=== PATIENT | female | born 1935 | race Caucasian/White ===

== ENCOUNTER 2018-03-23 22:18 | Inpatient (IN) | payer MEDICARE, MEDICAID ==
[~2018-03-23] VITALS: Ht 172.7 cm; Wt 88.9 kg
--- NOTE | 2018-03-23 22:35 | NUR ---
TO BED [address] YOUNGER S/P CT SHOWING RIGHT SIDED PULMONARY EMBOLIS. PT AAOX4 NO ACUTE DISTRESS NOTED, RESP EVEN AND UNLABORED. PLACE PT ON CARDIAC MONITORING, CONTINUOUS POX. PENDING ER MD ENGLISH.
[2018-03-23 23:27] LABS: BASOPHILS # (AUTO) 0.1 /CMM (0.0-0.2); EOSINOPHILS % (AUTO) 1.7 % (0.0-6.0); HEMATOCRIT 38 % (33-45); HEMOGLOBIN 12.6 g/dL (11.5-14.8); LYMPHOCYTES # (AUTO) 1.9 /CMM (0.8-4.8); LYMPHOCYTES % (AUTO) 23.2 % (20.0-44.0); MEAN CORPUSCULAR HGB CONC 34 g/dl (31.0-36.0); MEAN CORPUSCULAR VOLUME 88 fL (82-100); MONOCYTES # (AUTO) 0.5 /CMM (0.1-1.30); MONOCYTES % (AUTO) 6.4 % (2.0-12.0); NEUTROPHILS # (AUTO) 5.5 /CMM (1.8-8.9); NEUTROPHILS % (AUTO) 67.7 % (43.0-81.0); PLATELET COUNT (AUTO) 293 /CMM (150-450); RED BLOOD CELL COUNT(AUTO) 4.28 MIL/uL (4.0-5.2); WHITE BLOOD COUNT (AUTO) 8.1 K/uL (4.3-11.0)
--- NOTE | 2018-03-23 23:28 | NUR ---
CALLED DR DUMONT RADIOLOGIST ([phone]) PER DR ONEILL REGARDING REPORT FROM PREVIOUS CT.
--- NOTE | 2018-03-23 23:36 | NUR ---
CALLED HOUSE SUP FOR TELE BED
[2018-03-23 23:37] LABS: CARBON DIOXIDE 30 mmol/L (21-32); CHLORIDE 101 mmol/L (98-107); CREATININE 0.9 mg/dL (0.6-1.3); GLUCOSE 121 mg/dL (74-106); POTASSIUM 4.1 mmol/L (3.5-5.1); SODIUM SERUM 138 mmol/L (136-145); UREA NITROGEN, BLOOD 8 mg/dL (7-18)
[2018-03-23] MEDS ORDERED: ENOXAPARIN SODIUM 80 MG/0.8 ML DISP.SYRIN SQ STA (23:55)
[2018-03-24] VITALS (8 sets, daily range): BP systolic 104–135; BP diastolic 57–81
[2018-03-24] MEDS ORDERED: MAGNESIUM HYDROXIDE 30 ML UDC PO PRN (00:30)
[2018-03-24] MEDS ORDERED: Z GUARD REMEDY 2 OZ OINT TP PRN (00:30)
[2018-03-24] MEDS ORDERED: ZOLPIDEM TARTRATE 5 MG TABLET PO PRN (00:30)
[2018-03-24] MEDS ORDERED: ALBUTEROL FS 2.5 MG/3 ML VIAL.NEB NEB PRN (00:30)
[2018-03-24] MEDS ORDERED: MAG HYDROX/AL HYDROX/SIMETH 30 ML UDC PO PRN (00:30)
[2018-03-24] MEDS ORDERED: ACETAMINOPHEN 325 MG TABLET PO PRN (00:30)
[2018-03-24] MEDS ORDERED: ONDANSETRON HCL/PF 4 MG/2 ML VIAL IVP PRN (00:30)
--- NOTE | 2018-03-24 00:35 | NUR ---
ER MD AT BEDSIDE TALKING TO PT AND PT FAMILY MEMBER REGARDING LAB RESULTS AND HOSPITAL ADMISSION.
[2018-03-24] MEDS ORDERED: ENOXAPARIN SODIUM 80 MG/0.8 ML DISP.SYRIN SQ ONE (01:01)
--- NOTE | 2018-03-24 01:04 | NUR ---
REPORT CALLED TO ROUGHER MACHINE OPERATORWALI JAMISON. WILL TRANSPORT PT VIA ACLS PROTOCOL.
--- NOTE | 2018-03-24 01:20 | NUR ---
RN ADMITTING NOTES RECEIVED REPORT FROM ER NURSE ED. Pt ARRIVED ON THE FLOOR VIA GURNEY. Pt WAS ABLE TO AMBULATE FROM ER GURNEY TO ROOM BED IN 325-2, WITH STEADY GAIT. SKIN INTACT. Pt IS A/OX4, VERBAL, ABLE TO MAKE NEEDS KNOWN, UNDERSTANDS SOME BULGARIAN, ESTONIAN SPEAKING. Pt's DAUGHTER IS AT BEDSIDE. IV ACCESS ON RAC #18G, SL. NO S/S OF ACUTE DISTRESS OR SOB NOTED. ON TELE MONITOR. SAFETY MEASURES IN PLACE. BED LOW, LOCKED, HOB ELEVATED, SIDE RAILS UP, AND CALL LIGHT WITHIN REACH. WILL CONTINUE TO MONITOR Pt's CONDITION AND SAFETY THROUGHOUT THE NIGHT.
[2018-03-24] MEDS ORDERED: ENOXAPARIN SODIUM 100 MG/ML DISP.SYRIN SQ ONE (01:30)
[2018-03-24] MEDS ORDERED: ASPI81TA44 PO (01:54)
[2018-03-24] MEDS ORDERED: ESOM40CA PO (01:54)
[2018-03-24] MEDS ORDERED: SITA100T PO (01:54)
[2018-03-24] MEDS ORDERED: LEVO75TA7 PO (01:54)
[2018-03-24] MEDS ORDERED: METF-441 PO (01:54)
[2018-03-24] MEDS ORDERED: GLIM2TAB2 PO (01:54)
--- NOTE | 2018-03-24 04:41 | NUR ---
DR. DILLARD (PATIENT's PCP): [phone] DR. DUMONT (RADIOLOGIST WHO READ Pt's CT SCAN): [phone]
--- NOTE | 2018-03-24 06:45 | NUR ---
RN CLOSING NOTES NO SIGNIFICANT CHANGES IN Pt's CONDITION. Pt REMAINS STABLE PER BASELINE. NO S/S OF ACUTE DISTRESS OR SOB NOTED DURING THE NIGHT. Pt IS AWAKE IN BED. RESPIRATIONS EVEN AND UNLABORED. ALL NEEDS MET AND ATTENDED TO. SAFETY MEASURES IN PLACE. WILL ENDORSE TO DAYSHIFT RN FOR Pt's PASCUAL. Addendum: 03/24/18 at 0753 by ELIAS HOLDEN RN TELE READING SR [id number]
--- NOTE | 2018-03-24 07:41 | NUR ---
TELE/RN OPENING NOTE PATIENT IN BED IN STABLE CONDITION. A/O X 4. NO SIGNS OF ACUTE DISTRESS. NO COMPLAIN OF PAIN OR DISCOMFORT. ON TELE MONITOR NOTED WITH SINUS RHYTHM 68. ALL NEEDS ATTENDED TO. CALL LIGHT WITHIN REACH. WILL CONTINUE TO MONITOR TO ENSURE SAFETY.
[2018-03-24] MEDS: ENOXAPARIN SODIUM 100 MG/ML DISP.SYRIN SQ SCH ×2 (08:45→21:29)
[2018-03-24] MEDS ORDERED: TRAM50TA2 PO (08:56)
[2018-03-24] MEDS ORDERED: GABA-534 PO (08:56)
[2018-03-24] MEDS ORDERED: OLME1TAB50 PO (08:56)
[2018-03-24] MEDS ORDERED: FERR325T23 PO (08:56)
[2018-03-24] MEDS ORDERED: CHOL100044 PO (08:56)
[2018-03-24] MEDS ORDERED: FLUT1DIS3 IH (08:56)
[2018-03-24] MEDS ORDERED: PRAV20TA4 PO (08:56)
[2018-03-24] MEDS ORDERED: DONE5TAB34 PO (08:56)
[2018-03-24] MEDS ORDERED: OMEG-167 PO (08:58)
[2018-03-24] MEDS ORDERED: ENOXAPARIN SODIUM 80 MG/0.8 ML DISP.SYRIN SQ SCH (09:00)
[2018-03-24] MEDS: HYDROCODONE/APAP 5/325MG 1 EACH TABLET PO PRN (10:34)
--- NOTE | 2018-03-24 10:40 | NUR ---
TELE/RN SPOKE WITH CHRISTINE DUMONT , WHERE PATIENT GOT HER CT ANGIO DONE, IF THEY CAN FAX CT ANGIO RESULTS. PER CHRISTINE DUMONT, "HE WILL ASK HIS OFFICE TO FAX THE REPORT." FAX NUMBER PROVIDED.
[2018-03-24] MEDS ORDERED: DEXTROSE 50%-WATER 50 ML DISP.SYRIN IV PRN (11:00)
--- NOTE | 2018-03-24 11:00 | NUR ---
TELE/RN SPOKE WITH ROSENDA CALI AND MADE AWARE PER PATIENT'S RADIOLOGIST HE WILL FAX CT ANGIO RESULTS AND ALSO KARELY MADE AWARE PATIENT'S MED RECON NEEDS TO BE DONE. PER KARELY, HE WILL DO IT.
--- NOTE | 2018-03-24 12:00 | NUR ---
TELE/RN SPOKE WITH ROSENDA CALI AND RELAYED PATIENT'S CT ANGIO RESULTS FAXED FROM HER PRIMARY PHYSICIAN OFFICE. PER ROSENDA CALI PLEASE CONTINUE LOVENOX ORDERED. PATIENT AND FAMILY AWARE.
[2018-03-24] MEDS: INSULIN REGULAR, HUMAN 100 UNIT/ML 3 ML VIAL SQ PRN ×2 (12:03→17:23)
[2018-03-24] MEDS: BLOOD SUGAR DIAGNOSTIC 1 EACH STRIP IN SCH ×3 (12:03→21:28)
[2018-03-24] MEDS: TRAMADOL HCL 50 MG TABLET PO PRN (13:20)
--- NOTE | 2018-03-24 13:27 | NUR ---
INITIAL RESULTS OF DUPLEX VENOUS LOWER EXT BI COM TEST SHOWED POSITIVE FOR DVT AT LT SFV PROX, LT SFV MID, LT POP, AND RT CFV LEVELS. PRE FINDINGS ADVISED TO ATTENDING RN AND CHARGE NURSE (EHRNESTO) AND SPOKE TO KRUNAL DOWELL (STEPHEN).
--- NOTE | 2018-03-24 13:57 | NUR ---
TELE/RN PAGED CLERK TELEGRAPH SERVICE KARELY TO RELAY PATIENT BILATERAL LOWER EXTREMITY VENOUS DOPPLER STUDY RESULTS. AWAITING FOR CALL BACK.
--- NOTE | 2018-03-24 15:00 | NUR ---
TELE/RN RECEIVED CALL BACK FROM ROSENDA CALI AND RELAYED PATIENT'S BILATERAL LOWER EXTREMITY VENOUS DOPPLER STUDY. PER KARELY CONTINUE LOVENOX ORDERED. PATIENT AWARE.
[2018-03-24] MEDS ORDERED: ACETYLCYSTEINE 10% 3,000 MG/30 ML VIAL PO ONE (16:30)
[2018-03-24] MEDS ORDERED: BARIUM SULFATE SUSP 450 ML BOTTLE PO ONE (17:36)
[2018-03-24] MEDS ORDERED: CT SWABBABLE VALVE TRANS SET 1 EA INFUS.SET MC ONE (18:56)
[2018-03-24] MEDS ORDERED: IV NS 0.9% 250 ML IV ONE (18:56)
[2018-03-24] MEDS ORDERED: IOHEXOL-300 100 ML VIAL IV ONE ×2 (18:56→19:24)
--- NOTE | 2018-03-24 19:25 | NUR ---
MS RN OPENING NOTE PATIENT WAS SENT TO RADIOLOGY BY AM RN FOR CT ABDOMEN/PELVIS WITH CONTRAST. CAME BACK FROM RADIOLOGY. PT IS A/O X 4. NO COMPLAIN OF PAIN OR DISCOMFORT VERBALIZED AT THIS TIME. NO ACUTE DISTRESS NOTED. ABLE TO MAKE NEEDS KNOWN. IV ACCESS TO LAC, SL, INTACT PATENT. INSTRUCTED TO PATIENT TO REST IN BED MUCH POSSIBLE, VERBALIZED UNDERSTANDING. ALL NEEDS ATTENDED TO. BED IN LOW LOCKED POSITION. CALL LIGHT WITHIN REACH. CONTINUE TO MONITOR TO ENSURE SAFETY.
--- NOTE | 2018-03-24 19:30 | NUR ---
MS/RN CLOSING NOTE PATIENT IN BED IN STABLE CONDITION. A/OX 4. ENGLISH SPEAKING. NO SIGNS OF ACUTE DISTRESS. NO COMPLAIN OF PAIN OR DISCOMFORT. PATIENT WENT FOR CT ABD/PELVIS AT THIS TIME. WILL ENDORSE TO NEXT SHIFT FOR PASCUAL.
[2018-03-24] MEDS ORDERED: ENOXAPARIN SODIUM 100 MG/ML DISP.SYRIN SQ SCH (21:00)
[2018-03-24 21:14] LABS: ALANINE AMINOTRANSFERASE 20 U/L (12-78); ALBUMIN 3.2 g/dL (3.4-5.0); ALKALINE PHOSPHATASE 54 U/L (46-116); ASPARTATE AMINOTRANSFERASE 13 U/L (15-37); BILIRUBIN,TOTAL 0.2 mg/dL (0.2-1.0); CALCIUM, SERUM 9.1 mg/dL (8.5-10.1); CARBON DIOXIDE 30 mmol/L (21-32); CHLORIDE 100 mmol/L (98-107); CREATININE 0.7 mg/dL (0.6-1.3); GLUCOSE 152 mg/dL (74-106); IRON, SERUM 46 ug/dl (50-175); MAGNESIUM 1.4 mg/dL (1.8-2.4); PHOSPHORUS 3.7 mg/dL (2.5-4.9); POTASSIUM 3.8 mmol/L (3.5-5.1); SODIUM SERUM 136 mmol/L (136-145); TOTAL IRON BINDING CAPACITY 250 ug/dl (250-450); TOTAL PROTEIN, SERUM 6.6 g/dL (6.4-8.2); UREA NITROGEN, BLOOD 11 mg/dL (7-18)
[2018-03-24 21:18] LABS: CHOLESTEROL 197 mg/dL (<200); FERRITIN 35 ng/mL (8-388); HDL CHOLESTEROL 84 mg/dL (40-60); LDL 97 mg/dL (0-99); THYROID STIMULATING HORMONE 4.021 uIU/mL (0.358-3.74); TRIGLYCERIDES 129 mg/dL (30-150)
[2018-03-24] MEDS: GABAPENTIN 300 MG CAPSULE PO SCH (21:28)
[2018-03-25 06:16] LABS: BASOPHILS # (AUTO) 0.1 /CMM (0.0-0.2); BASOPHILS % (AUTO) 1.1 % (0.0-2.0); EOSINOPHILS % (AUTO) 2.3 % (0.0-6.0); HEMATOCRIT 37 % (33-45); LYMPHOCYTES # (AUTO) 1.7 /CMM (0.8-4.8); LYMPHOCYTES % (AUTO) 33.8 % (20.0-44.0); MEAN CORPUSCULAR HGB CONC 33 g/dl (31.0-36.0); MEAN CORPUSCULAR VOLUME 89 fL (82-100); MONOCYTES # (AUTO) 0.3 /CMM (0.1-1.30); MONOCYTES % (AUTO) 6.9 % (2.0-12.0); NEUTROPHILS # (AUTO) 2.8 /CMM (1.8-8.9); NEUTROPHILS % (AUTO) 55.9 % (43.0-81.0); PLATELET COUNT (AUTO) 268 /CMM (150-450); RED BLOOD CELL COUNT(AUTO) 4.14 MIL/uL (4.0-5.2)
[2018-03-25 06:26] LABS: CARBON DIOXIDE 29 mmol/L (21-32); CHLORIDE 103 mmol/L (98-107); CREATININE 0.7 mg/dL (0.6-1.3); GLUCOSE 143 mg/dL (74-106); MAGNESIUM 1.3 mg/dL (1.8-2.4); PHOSPHORUS 4.5 mg/dL (2.5-4.9); SODIUM SERUM 142 mmol/L (136-145); UREA NITROGEN, BLOOD 9 mg/dL (7-18)
[2018-03-25] MEDS: BLOOD SUGAR DIAGNOSTIC 1 EACH STRIP IN SCH ×4 (06:40→21:01)
--- NOTE | 2018-03-25 06:41 | NUR ---
REFUSES INSULIN PATIENT'S BS LEVEL NOTED TO BE 143MG/DL. 2 UNITS OF INSULIN NEEDS TO BE GIVEN BUT PATIENT REFUSED TO GET INSULIN PER PROTOCOL DESPITE OF RISKS & BENEFIT EXPLANATIONS. WILL ENDORSE TO AM RN.
[2018-03-25 06:49] LABS: CHOLESTEROL 195 mg/dL (<200); HDL CHOLESTEROL 77 mg/dL (40-60); LDL 96 mg/dL (0-99); TRIGLYCERIDES 161 mg/dL (30-150)
--- NOTE | 2018-03-25 06:56 | NUR ---
MS RN CLOSING NOTE PATIENT SLEPT WELL AT NIGHT. PT IS A/O X 4. NO COMPLAIN OF PAIN OR DISCOMFORT VERBALIZED AT THIS TIME. NO ACUTE DISTRESS, NO SOB, NO CHEST PAIN VERBALIZED. ABLE TO MAKE NEEDS KNOWN. IV ACCESS TO LAC, SL, INTACT PATENT. INSTRUCTED TO PATIENT TO REST IN BED MUCH POSSIBLE, VERBALIZED UNDERSTANDING. INSISTS TO USE BSC FOR ELIMINATION. ALL NEEDS ATTENDED TO. BED IN LOW LOCKED POSITION. CALL LIGHT WITHIN REACH. WILL ENDORSE TO AM RN FOR CONTINUITY OF CARE.
--- NOTE | 2018-03-25 07:20 | NUR ---
MS RN OPENING NOTE RECEIVED PATIENT IN BED. ALERT, ORIENTED X4. ON ROOM AIR TOLERATING WELL. IN NO APPARENT DISTRESS OR DISCOMFORT AT THIS TIME. RESPIRATIONS EVEN AND UNLABORED, DENIES SOB. PATIENT IS ABLE TO COMMUNICATE NEEDS IN VIETNAMESE. LEFT AC 18G IVC SL, PATENT AND INTACT. PATIENT KEPT CLEAN AND COMFORTABLE. ALL NEEDS ATTENDED, SAFETY MEASURES IN PLACE, BED IN LOW LOCKED POSITION, SIDE RAILS UP X2, CALL LIGHT WITHIN EASY REACH. WILL CONTINUE TO MONITOR.
[2018-03-25 08:00] VITALS: BP 127/80
[2018-03-25] MEDS: HYDROCODONE/APAP 5/325MG 1 EACH TABLET PO PRN (08:28)
[2018-03-25] MEDS: CHOLECALCIFEROL 1,000 UNIT TABLET (VIT D3) PO SCH (08:28)
[2018-03-25] MEDS: ASPIRIN EC 81 MG TABLET.DR PO SCH (08:28)
[2018-03-25] MEDS: LEVOTHYROXINE SODIUM 75 MCG TABLET PO SCH (08:28)
[2018-03-25] MEDS: DONEPEZIL 5 MG TABLET PO SCH (08:28)
[2018-03-25] MEDS: ENOXAPARIN SODIUM 100 MG/ML DISP.SYRIN SQ SCH ×2 (08:29→20:55)
[2018-03-25] MEDS: ATORVASTATIN 10 MG TABLET PO SCH (08:29)
[2018-03-25] MEDS: LOSARTAN/HCTZ 50-12.5MG/ 1 EA TABLET PO SCH ×2 (08:37→08:50)
[2018-03-25] MEDS ORDERED: FERROUS SULFATE (325 MG) 325 MG/TAB TABLET PO SCH (09:00)
[2018-03-25] MEDS: Magnesium 1GM/D5W 100ML PREMIX 100 ML IV SCH ×2 (09:33→10:54)
[2018-03-25 09:57] VITALS: BP 127/80
--- NOTE | 2018-03-25 12:00 | NUR ---
PATIENT BG 166. REFUSES INSULIN. HOSPITALIST KARELY MADE AWARE. WILL CONTINUE TO MONITOR.
[2018-03-25] MEDS: INSULIN REGULAR, HUMAN 100 UNIT/ML 3 ML VIAL SQ PRN (12:05)
[2018-03-25] MEDS: TRAMADOL HCL 50 MG TABLET PO PRN (13:19)
--- NOTE | 2018-03-25 18:19 | NUR ---
MS RN CLOSING NOTE PATIENT IN BED. ALERT, ORIENTED X4. ON ROOM AIR TOLERATING WELL. IN NO APPARENT DISTRESS OR DISCOMFORT AT THIS TIME. RESPIRATIONS EVEN AND UNLABORED, DENIES PAIN AND SOB. PATIENT IS ABLE TO COMMUNICATE NEEDS IN TURKISH. LEFT AC 18G IVC SL, PATENT AND INTACT. PATIENT IS ON BEDREST. USES BSC FOR ELIMINATION. KEPT CLEAN AND COMFORTABLE. ALL NEEDS ATTENDED, ORDERS RENDERED. SAFETY MEASURES IN PLACE, BED IN LOW LOCKED POSITION, SIDE RAILS UP X2, CALL LIGHT WITHIN EASY REACH. WILL ENDORSE TO PM NURSE FOR PASCUAL.
--- NOTE | 2018-03-25 19:32 | NUR ---
RN MS OPENING NOTES RECEIVED PATIENT IN BED AWAKE, ALERT AND ORIENTED X4, VERBALLY RESPONSIVE, ABLE TO MAKE NEEDS KNOWN. UKRAINIAN SPEAKING. BREATHING EVEN AND UNLABORED. NO SOB NOTED. TOLERATING ROOM AIR. NO COMPLAINTS OF PAIN OR DISCOMFORT. IV ON LEFT AC #18 INTACT AND PATENT. SKIN DRY AND WARM TO TOUCH. AFEBRILE. ALL OTHER NEEDS ATTENDED TO. SAFETY MEASURES IN PLACE. CALL LIGHT WITHIN REACH. WILL CONTINUE TO MONITOR.
[2018-03-25 20:00] VITALS: BP 128/62
[2018-03-25] MEDS: GABAPENTIN 300 MG CAPSULE PO SCH (21:01)
--- NOTE | 2018-03-25 21:33 | NUR ---
RN MS NOTES PATIENT'S BS 171. REFUSED INSULIN. PER PATIENT, SHE HASN'T HAD HER METFORMIN, WHICH IS WHY HER BS IS HIGHER THAN USUAL. OFFERED INSULIN AGAIN AND EXPLAINED RISKS AND BENEFITS, STILL REFUSED. WILL CONTINUE TO MONITOR.
[2018-03-26] MEDS: BLOOD SUGAR DIAGNOSTIC 1 EACH STRIP IN SCH ×2 (06:31→12:05)
--- NOTE | 2018-03-26 06:32 | NUR ---
RN MS NOTES PATIENT'S BS 145. REFUSES INSULIN DESPITE EXPLANATION OF RISKS AND BENEFITS. WILL CONTINUE TO MONITOR.
--- NOTE | 2018-03-26 06:44 | NUR ---
RN MS CLOSING NOTES PATIENT IN BED AWAKE. NO ACUTE CHANGES THROUGHOUT SHIFT. BREATHING EVEN AND UNLABORED. NO SOB NOTED. TOLERATING ROOM AIR. NO COMPLAINTS OF PAIN OR DISCOMFORT. IV ON LEFT AC #18 INTACT AND PATENT. SKIN DRY AND WARM TO TOUCH. AFEBRILE. KEPT CLEAN AND COMFORTABLE. ALL OTHER NEEDS ATTENDED TO. SAFETY MEASURES IN PLACE. CALL LIGHT WITHIN REACH. WILL ENDORSE TO ONCOMING NURSE FOR CONTINUITY OF CARE.
--- NOTE | 2018-03-26 07:36 | NUR ---
MS RN OPENING NOTE RECEIVED PT IN BED, SLEEPING AND EASILY AROUSABLE. PT IS PRIMARILY CENTRAL AFRICAN SPEAKING, ABLE TO MAKE BASIC NEEDS KNOWN, NO ACUTE DISTRESS NOTED AT THIS TIME. BREATHING IS EVEN AND UNLABORED ON ROOM AIR. L AC #18G IV IS SALINE LOCKED WITHOUT REDNESS OR SWELLING. ALL NEEDS ATTENDED TO, BED IS LOCKED AND IN LOWEST POSITION, SIDE RAILS UP X2,BED ALARM ON, CALL LIGHT WITHIN REACH.
[2018-03-26 08:00] VITALS: BP 115/68
[2018-03-26 08:04] LABS: CALCIUM, SERUM 7.7 mg/dL (8.5-10.1); CARBON DIOXIDE 33 mmol/L (21-32); CHLORIDE 103 mmol/L (98-107); CREATININE 0.8 mg/dL (0.6-1.3); GLUCOSE 149 mg/dL (74-106); POTASSIUM 4.6 mmol/L (3.5-5.1); SODIUM SERUM 142 mmol/L (136-145); UREA NITROGEN, BLOOD 11 mg/dL (7-18)
[2018-03-26] MEDS: ATORVASTATIN 10 MG TABLET PO SCH (08:21)
[2018-03-26] MEDS: LEVOTHYROXINE SODIUM 75 MCG TABLET PO SCH (08:21)
[2018-03-26] MEDS: ASPIRIN EC 81 MG TABLET.DR PO SCH (08:21)
--- NOTE | 2018-03-26 08:21 | NUR ---
MS RN NON ADMINISTRATION NOTE PT REFUSED AM ARICEPT AND HYZAAR ORDERED. RISKS AND BENEFITS EXPLAINED, PT STILL REFUSED.
[2018-03-26] MEDS: CHOLECALCIFEROL 1,000 UNIT TABLET (VIT D3) PO SCH (08:22)
[2018-03-26 08:23] VITALS: BP 115/68
[2018-03-26] MEDS: DONEPEZIL 5 MG TABLET PO SCH (08:23)
[2018-03-26] MEDS: LOSARTAN/HCTZ 50-12.5MG/ 1 EA TABLET PO SCH (08:23)
[2018-03-26] MEDS: ENOXAPARIN SODIUM 100 MG/ML DISP.SYRIN SQ SCH (08:27)
[2018-03-26] MEDS: HYDROCODONE/APAP 5/325MG 1 EACH TABLET PO PRN (12:03)
[2018-03-26] MEDS: INSULIN REGULAR, HUMAN 100 UNIT/ML 3 ML VIAL SQ PRN (12:06)
--- NOTE | 2018-03-26 12:10 | NUR ---
MS RN NON ADMINISTRATION NOTE B. PT REFUSED SLIDING SCALE INSULIN ORDERED, RISK AND BENEFITS EXPLAINED. PT STILL REFUSED.
--- NOTE | 2018-03-26 16:25 | NUR ---
MS RN PT DISCHARGED PT DISCHARGED HOME VIA PRIVATE CAR IN MEDICALLY STABLE CONDITION. PT ACCOMPANIED BY DAUGHTER MAUREEN. EDUCATION AND DISCHARGE PAPERWORK PROVIDED PER HOSPITAL PROTOCOL. PRESCRIPTION GIVEN. PER CHARGE NURSE YAMIL, SHE SPOKE WITH [facility] LOCATED AT [address] [place] [address], PHONE: [phone] AND FAXED FACE SHEET TO INITIATE PRESCRIPTION PICKUP. INFORMED DAUGHTER YAMIL OF THIS UPDATE WHO VERBALIZED UNDERSTANDING AND WILL MOUNTER FLUTES AND PICCOLOS MEDICATION AFTER LEAVING THE HOSPITAL. DISCHARGE EDUCATION PROVIDED BY NURSING PROGRAM PLANNER TYLER IN PT'S CHICKEN RANCH LANGUAGE WHICH IS ESTONIAN. L AC PERIPHERAL IV REMOVED WITH CATHETER TIP INTACT. ALL BELONGINGS ACCOUNTED FOR AND BELONGINGS SHEET SIGNED AND PLACED IN CHART.
== END 2018-03-26 16:45 | disposition home or self-care (01) | DRG 197 ==
LOC: ER 22:21 → TELE 23:53 → MED 03-24 18:43
PROVIDERS: ADMIT Nurse Practitioner Acute Care; ATTEND Nurse Practitioner Acute Care
DX: I82.412 Acute embolism and thrombosis of left femoral vein (principal); I26.99 Other pulmonary embolism without acute cor pulmonale; I82.411 Acute embolism and thrombosis of right femoral vein; E11.42 Type 2 diabetes mellitus with diabetic polyneuropathy; F17.200 Nicotine dependence, unspecified, uncomplicated; D50.9 Iron deficiency anemia, unspecified; E83.42 Hypomagnesemia; G62.9 Polyneuropathy, unspecified; E03.9 Hypothyroidism, unspecified; I10 Essential (primary) hypertension; M19.90 Unspecified osteoarthritis, unspecified site; E66.9 Obesity, unspecified; Z90.49 Acquired absence of other specified parts of digestive tract; Z68.29 Body mass index [BMI] 29.0-29.9, adult; I82.432 Acute embolism and thrombosis of left popliteal vein; M25.562 Pain in left knee; Z79.84 Long term (current) use of oral hypoglycemic drugs
CPT/HCPCS: 36415; 71045-TC; 80048-TC; 80053-TC; 80061-TC; 82728-TC; 82962-TC; 83540-TC; 83735-TC; 84100-TC; 84439-TC; 84443-TC; 84484-TC; 84550-TC; 85025-TC; 85652-TC; 85730-TC; 87081-TC; 93307-TC; 93970-TC; G0378; J1650; J1815; J3475; J7050; Q9967